=== PATIENT | male | born 1990 | race Two or more races ===

== ENCOUNTER 2023-03-31 08:30 | Emergency (ER) | payer OTHER, SELFPAY ==
[2023-03-31 08:33] VITALS: BP 107/55; PULSE 105; RESP 18; TEMP 36.6; O2SAT 94; BMI 46.1
--- NOTE | 2023-03-31 08:52 | XR_ITS ---
The [address] [address] Patient Name: ERIKA CARLOS MRN: [id number] date: 1990 Sex: M Assigned Patient Location: ER Current Patient Location: ER Accession/Order Number: [id number] Exam Date: 03/31/2023 09:23 Report Date: 03/31/2023 09:37 At the request of: CHRISTIAN HORNER Procedure: XR chest 1V EXAM: XR chest 1V HISTORY: . shortness of breath . COMPARISON: None. TECHNIQUE: Single view of the chest FINDINGS: Heart and vascularity are unremarkable. Lungs are free of focal infiltrates. Grossly no bony abnormality is appreciated. XR/XR chest 1V IMPRESSION: No acute heart or lung disease identified. Electronically authenticated by: HONEY JENSEN Date: 03/31/2023 09:37
--- NOTE | 2023-03-31 08:54 | ED.SOB1 ---
HPI - SOB/Dyspnea General Chief Complaint: Shortness of Breath/Dyspnea Time Seen by Provider: 03/31/23 08:52 Source: patient Mode of arrival: walk-in History of Present Illness HPI Narrative: patient here with increasing shortness of breath. He's been sick for several days but it got worse last night. 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 He does smoke a pack cigarettes a day. He went to an urgent care previously and he just started taking azithromycin Thursday and they also placed him on steroids. They have a nebulizer machine at home for another family member but he has not been using it. 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 He's not had bloody sputum. He's not had any congestive heart failure or cardiac problems. He has wheezes and cannot do much work at all without getting short of breath. He is not noticing swelling of his legs. He's not had sore throat or muscle aches and pains. He's had Covid previously several times Related Data Home Medications Medication Instructions Recorded Confirmed albuterol sulfate 90 mcg/actuation 1 inh inhalation Q6H PRN shortness 03/31/23 03/31/23 aerosol inhaler of breath or wheezing azithromycin 500 mg tablet 500 mg PO Q12H 03/31/23 03/31/23 prednisone 50 mg tablet 50 mg PO DAILY 03/31/23 03/31/23 Allergies Allergy/AdvReac Type Severity Reaction Status Date / Time No Known Drug Allergies Allergy Verified 03/31/23 08:33 PFS PFS Social History Smoking status: Current every day smoker Exam Narrative Exam Narrative: very pleasant gentleman does have a cough with a bronchospastic component. Does not appear acutely ill. Pulse ox is ninety-three percent on room air. He's very large gentleman. Examination his lungs shows some maxillary wheezing bilaterally with no rhonchi. There are some rales bibasilar. Heart sounds normal no S3-S4 or murmur. Legs show no evidence of peripheral edema or venous stasis. He does not have any abdominal complaints. ENT does not show any abnormalities or focus of infection. Constitutional Vital Signs, click to edit/add: Last Vital Signs Temp 97.9 F 03/31/23 08:33 Pulse 103 H 03/31/23 08:56 Resp 18 03/31/23 08:33 BP 107/55 03/31/23 08:33 Pulse Ox 93 L 03/31/23 08:56 O2 Del Method Room Air 03/31/23 08:56 Course Vital Signs Vital signs: Vital Signs Temperature 97.9 F 03/31/23 08:33 Pulse Rate 105 H 03/31/23 08:33 Respiratory Rate 18 03/31/23 08:33 Blood Pressure 107/55 03/31/23 08:33 Pulse Oximetry 94 L 03/31/23 08:33 Oxygen Delivery Method Room Air 03/31/23 08:33 Temperature 97.9 F 03/31/23 08:33 Pulse Rate 103 H 03/31/23 08:56 Respiratory Rate 18 03/31/23 08:33 Blood Pressure 107/55 03/31/23 08:33 Pulse Oximetry 93 L 03/31/23 08:56 Oxygen Delivery Method Room Air 03/31/23 08:56 MDM - SOB/Dyspnea MDM Narrative Medical decision making narrative: patient's white blood cell count is modestly elevated. He has taken some steroids. His chest x-ray did not show any acute findings and is frustrate panel was completely negative. He was given a DuoNeb and does feel better. His indicated that he does have a nebulizer treatment at home so we'll start him on that. Our review with him his steroid dose. We'll keep him on his azithromycin. Cigarette cessation was emphasized. Lab Data Labs: Lab Results 03/31/23 03/31/23 Range/Units 08:55 09:01 WBC 16.2 H (4.0-11.0) 10^3/uL RBC 5.02 (4.70-6.10) 10^6/uL Hgb 14.4 (14.0-18.0) g/dL Hct 44.6 (42.0-54.0) % MCV 88.8 (80.0-94.0) fL MCH 28.7 (25.9-34.0) pg MCHC 32.3 (29.9-35.2) g/dL RDW 13.2 (11.0-15.0) % Plt Count 296 (150-450) 10^3/uL MPV 9.7 (9.5-13.5) fL Neut % (Auto) 62.0 (43.0-75.0) % Lymph % (Auto) 31.1 (20.5-60.0) % Mcculloch % (Auto) 5.2 (1.7-12.0) % Eos % (Auto) 0.7 L (0.9-7.0) % Baso % (Auto) 0.4 (0.2-2.0) % Neut # (Auto) 10.1 H (1.4-6.5) 10^3/uL Lymph # (Auto) 5.1 H (1.2-3.8) 10^3/uL Mcculloch # (Auto) 0.8 (0.3-0.8) 10^3/uL Eos # (Auto) 0.1 (0.0-0.7) 10^3/uL Baso # (Auto) 0.1 (0.0-0.1) 10^3/uL Abs Immat Gran (auto) 0.10 H (0.00-0.03) 10^3/uL Imm/Tot Granulo (auto) 0.6 H (0.0-0.5) % Sodium 139 (136-145) mmol/L Potassium 3.6 (3.5-5.1) mmol/L Chloride 103 (98-107) mmol/L Carbon Dioxide 29.0 (21.0-32.0) mmol/L Anion Gap 10.6 BUN 12.0 (7.0-18.0) mg/dL Creatinine 0.85 (0.70-1.30) mg/dL Est GFR ( Amer) >60 (>=60) Est GFR (Non-Af Amer) >60 (>=60) BUN/Creatinine Ratio 14.1 Glucose 107 H (74-106) mg/dL Calcium 8.4 L (8.5-10.1) mg/dL NT-Pro-B Natriuret Pep 27.0 (<=450.0) pg/mL Adenovirus (PCR) Not detected (NOT DETECTE) C. pneumoniae DNA (PCR) Not detected (NOT DETECTE) Coronavirus Type OC43 Not detected (NOT DETECTE) Coronavirus Type HKU1 Not detected (NOT DETECTE) Coronavirus Type 229E Not detected (NOT DETECTE) Coronavirus Type NL63 Not detected (NOT DETECTE) Human Metapneumovir PCR Not detected (NOT DETECTE) M. pneumoniae (PCR) Not detected (NOT DETECTE) Parainfluenza PCR Not detected (NOT DETECTE) Parainfluenza 2 (PCR) Not detected (NOT DETECTE) Parainfluenza 3 (PCR) Not detected (NOT DETECTE) Parainfluenza 4 (PCR) Not detected (NOT DETECTE) RSV (RT-PCR) Not detected (NOT DETECTE) Entero/Rhino (PCR) Not detected (NOT DETECTE) SARS-CoV-2 (PCR) Not detected (NOT DETECTE) Bordetella pertussis (PCR) Not detected (NOT DETECTE) B parapertussis DNA PCR Not detected (NOT DETECTE) Influenza Type A (PCR) Not detected (NOT DETECTE) Influenza Type B (PCR) Not detected (NOT DETECTE) Discharge Plan Discharge Chief Complaint: Shortness of Breath/Dyspnea Clinical Impression: Acute dyspnea Patient Disposition: Home, Self-Care Time of Disposition Decision: 10:35 Prescriptions / Home Meds: No Action albuterol sulfate 90 mcg/actuation HFA aerosol inhaler 1 inh INHALATION Q6H PRN (Reason: shortness of breath or wheezing) azithromycin 500 mg tablet 500 mg PO Q12H prednisone 50 mg tablet 50 mg PO DAILY Additional Instructions: albuterol home nebulizers every four hours. Cigarette cessation/finish antibiotics Stand Alone Forms: Portal Instructions Referrals: Physician,Non-Staff, MD [Primary Care Provider] - 1 week
[2023-03-31 08:56] VITALS: PULSE 103; O2SAT 93
[2023-03-31 09:07] LABS: Basophils Absolute Auto 0.1 10^3/uL (0.0-0.1); Basophils Percent Auto 0.4 % (0.2-2.0); Eosinophils Absolute Auto 0.1 10^3/uL (0.0-0.7); Eosinophils Percent Auto 0.7 % (0.9-7.0); Hematocrit 44.6 % (42.0-54.0); Hemoglobin 14.4 g/dL (14.0-18.0); Immature Granulocytes Pct Auto 0.6 % (0.0-0.5); Lymphocytes Absolute Auto 5.1 10^3/uL (1.2-3.8); Lymphocytes Percent Auto 31.1 % (20.5-60.0); Mean Corpuscular HGB Conc 32.3 g/dL (29.9-35.2); Mean Corpuscular Hemoglobin 28.7 pg (25.9-34.0); Mean Corpuscular Volume 88.8 fL (80.0-94.0); Mean Platelet Volume 9.7 fL (9.5-13.5); Monocytes Absolute Auto 0.8 10^3/uL (0.3-0.8); Monocytes Percent Auto 5.2 % (1.7-12.0); Neutrophils Absolute Auto 10.1 10^3/uL (1.4-6.5); Platelet Count 296 10^3/uL (150-450); Red Blood Count 5.02 10^6/uL (4.70-6.10); Red Cell Distribution Width 13.2 % (11.0-15.0); White Blood Count 16.2 10^3/uL (4.0-11.0)
[2023-03-31 09:14] LABS: Adenovirus NOT DETECTED (NOT DETECTE); Bordetella parapertussis NOT DETECTED (NOT DETECTE); Coronavirus 229E NOT DETECTED (NOT DETECTE); Coronavirus HKU1 NOT DETECTED (NOT DETECTE); Coronavirus NL63 NOT DETECTED (NOT DETECTE); Coronavirus OC43 NOT DETECTED (NOT DETECTE); Human Metapneumovirus NOT DETECTED (NOT DETECTE); Human Rhinovirus/Enterovirus NOT DETECTED (NOT DETECTE); Influenza A NOT DETECTED (NOT DETECTE); Influenza B NOT DETECTED (NOT DETECTE); Mycoplasma pneumoniae NOT DETECTED (NOT DETECTE); Parainfluenza Virus 1 NOT DETECTED (NOT DETECTE); Parainfluenza Virus 2 NOT DETECTED (NOT DETECTE); Parainfluenza Virus 3 NOT DETECTED (NOT DETECTE); Parainfluenza Virus 4 NOT DETECTED (NOT DETECTE); Respiratory Syncytial Virus NOT DETECTED (NOT DETECTE); SARS-CoV-2 NOT DETECTED (NOT DETECTE)
[2023-03-31] MEDS: METHYLPREDNISOLONE SOD SUCC PF 125 MG/2 ML VIAL IVP (09:21)
[2023-03-31] MEDS: IPRATROPIUM/ALBUTEROL SULFATE 3 ML AMPUL.NEB IH (09:30)
[2023-03-31 09:32] LABS: Anion Gap 10.6; BUN Creatinine Ratio 14.1; Calcium 8.4 mg/dL (8.5-10.1); Chloride 103 mmol/L (98-107); Estimated GFR (African America >60 (>=60); Estimated GFR (Non-African Ame >60 (>=60); Glucose 107 mg/dL (74-106); Potassium 3.6 mmol/L (3.5-5.1); Sodium 139 mmol/L (136-145)
== END 2023-03-31 10:51 | disposition home or self-care (01) ==
PROVIDERS: Emergency Provider Emergency Medicine Emergency Medical Services
DX: R06.00 Dyspnea, unspecified (principal); Z79.899 Other long term (current) drug therapy; Z86.16 Personal history of COVID-19; F17.210 Nicotine dependence, cigarettes, uncomplicated; Z20.822 Contact with and (suspected) exposure to COVID-19
CPT/HCPCS: 0202U; 36415; 71045; 80048; 83880; 85025; 94640; 99284; J2930

== ENCOUNTER 2023-12-03 14:00 | Emergency (ER) | payer OTHER, SELFPAY ==
[2023-12-03 14:02] VITALS: BP 135/96; PULSE 93; TEMP 36.9; O2SAT 95; BMI 51.7
--- NOTE | 2023-12-03 14:19 | ED_ITS ---
HPI HPI - General Adult General Chief complaint: Headache Stated complaint: HEADACHE/NAUSEA/VOMITING Time Seen by Provider: 12/03/23 14:09 Mode of arrival: walk-in Limitations: no limitations History of Present Illness HPI narrative: And is a 32-year-old male who presents to the emergency department for 3-day history of frontal headache associated with nausea and vomiting. Patient denies any trauma to the head. He states he has had a gradually worsening headache over the bilateral temples. He denies visual changes. He denies objective fevers. He has not had any significant congestion and does not believe that his sinuses feel any pressure. No cough. He has developed nausea and vomiting over the last several days. No diarrhea or urinary symptoms. He has no history of migraines. No medications prior to arrival today. He denies abdominal pain, chest pain, back pain Related Data Previous Rx's ?Medication ?Instructions ?Recorded crzrukuugy-woehiomcxyvzw-pdbnhune 1 cap PO Q6H PRN headache #12 caps 12/03/23 50 mg-300 mg-40 mg capsule (Fioricet) dexamethasone 4 mg tablet 4 mg PO BID 5 days #10 tabs 12/03/23 ketorolac 10 mg tablet 10 mg PO TID PRN pain #10 tabs 12/03/23 ondansetron 4 mg disintegrating 4 mg PO Q6H PRN nausea and 12/03/23 tablet vomiting #12 tabs Allergies Allergy/AdvReac Type Severity Reaction Status Date / Time No Known Drug Allergies Allergy Verified 12/03/23 14:02 Opioid HPI Opioid Management Most Recent Opioid Data: Last Pain Scale 10 12/03/23 14:45 Last MAR Pain Assessment 12/03/23 14:44 Review of Systems ROS Constitutional Denies: fever or chills Ears, nose, mouth, and throat Denies: throat pain or nasal congestion Cardiovascular Denies: chest pain Respiratory Denies: shortness of breath or cough Gastrointestinal Reports: nausea and vomiting; Denies: abdominal pain or diarrhea Musculoskeletal Denies: back pain or neck pain Integumentary/Breast Denies: rash Neurological Reports: headache; Denies: numbness in extremities or weakness in extremities Hematologic/Lymphatic Denies: easy bruising or easy bleeding PFSH PFSH Social History Smoking status: Current every day smoker Exam Narrative Exam Narrative: Gen.: Awake, alert, in no distress Head: Normocephalic, atraumatic ENT: Moist mucous membranes, No photophobia, no nuchal rigidity Respiratory: No respiratory distress, lungs clear bilaterally Cardio: Regular rate and rhythm Extremities: Moves extremities equally Psych: Normal mood and affect Neuro: No focal neuro deficit Skin: Warm, dry, intact Constitutional Vital Signs, click to edit/add: Last Vital Signs Temp 98.4 F 12/03/23 14:02 Pulse 93 H 12/03/23 14:02 Resp 20 12/03/23 14:02 BP 135/96 H 12/03/23 14:02 Pulse Ox 95 12/03/23 14:02 O2 Del Method Room Air 12/03/23 14:02 Course Vital Signs Vital signs: Vital Signs Temperature 98.4 F 12/03/23 14:02 Pulse Rate 93 H 12/03/23 14:02 Respiratory Rate 20 12/03/23 14:02 Blood Pressure 135/96 H 12/03/23 14:02 Pulse Oximetry 95 12/03/23 14:02 Oxygen Delivery Method Room Air 12/03/23 14:02 Temperature 98.4 F 12/03/23 14:02 Pulse Rate 93 H 12/03/23 14:02 Respiratory Rate 20 12/03/23 14:02 Blood Pressure 135/96 H 12/03/23 14:02 Pulse Oximetry 95 12/03/23 14:02 Oxygen Delivery Method Room Air 12/03/23 14:02 Medical Decision Making MDM Narrative Medical decision making narrative: CT of the brain is unremarkable, lab studies show mildly elevated CRP and sed rates. COVID test is negative. Patient with stable vital signs on reevaluation. He is resting comfortably. He was given IV fluids, Reglan, Benadryl, Toradol with improvement. He will be discharged home on Fioricet, Toradol, Zofran. Decadron given for home as well. Follow-up with PCP and return to the ER if symptoms change or worsen SUPERVISED APC VISIT, PHYSICIAN ATTESTATION: Based on the medical record the care appears appropriate. ? Medical Records Medical records reviewed: Yes I reviewed the patient's medical records Lab Data Lab results reviewed: Yes I reviewed the patient's lab results Labs: Lab Results 12/03/23 12/03/23 Range/Units 14:31 15:22 WBC 9.4 (4.0-11.0) 10^3/uL RBC 5.09 (4.70-6.10) 10^6/uL Hgb 14.7 (14.0-18.0) g/dL Hct 44.3 (42.0-54.0) % MCV 87.0 (80.0-94.0) fL MCH 28.9 (25.9-34.0) pg MCHC 33.2 (29.9-35.2) g/dL RDW 12.8 (11.0-15.0) % Plt Count 235 (150-450) 10^3/uL MPV 10.0 (9.5-13.5) fL Neut % (Auto) 79.3 H (43.0-75.0) % Lymph % (Auto) 13.4 L (20.5-60.0) % Porter % (Auto) 6.9 (1.7-12.0) % Eos % (Auto) 0.0 L (0.9-7.0) % Baso % (Auto) 0.2 (0.2-2.0) % Neut # (Auto) 7.5 H (1.4-6.5) 10^3/uL Lymph # (Auto) 1.3 (1.2-3.8) 10^3/uL Porter # (Auto) 0.7 (0.3-0.8) 10^3/uL Eos # (Auto) 0.0 (0.0-0.7) 10^3/uL Baso # (Auto) 0.0 (0.0-0.1) 10^3/uL Abs Immat Gran (auto) 0.02 (0.00-0.03) 10^3/uL Imm/Tot Granulo (auto) 0.2 (0.0-0.5) % ESR 70 H (<=15) mm/hr Sodium 136 (136-145) mmol/L Potassium 3.8 (3.5-5.1) mmol/L Chloride 102 (98-107) mmol/L Carbon Dioxide 28.9 (21.0-32.0) mmol/L Anion Gap 8.9 BUN 11.0 (7.0-18.0) mg/dL Creatinine 0.96 (0.70-1.30) mg/dL Est GFR ( Amer) >60 (>=60) Est GFR (Non-Af Amer) >60 (>=60) BUN/Creatinine Ratio 11.5 Glucose 139 H (74-106) mg/dL Calcium 8.8 (8.5-10.1) mg/dL Total Bilirubin 0.5 (0.2-1.0) mg/dL AST 36 (15-37) U/L ALT 73 H (16-63) U/L Alkaline Phosphatase 81 (46-116) U/L C-Reactive Protein 2.76 H (<=0.50) mg/dL Total Protein 8.2 (6.4-8.2) g/dL Albumin 3.3 L (3.4-5.0) g/dL Globulin 4.9 g/dL Albumin/Globulin Ratio 0.7 SARS-CoV-2 Ag (CV2AG) Negative (NEGATIVE) Imaging Data CT scan - head: Attestation: I have reviewed the pertinent imaging results. Radiologist's impression: ITS Impressions Head CT 12/03/23 14:59 IMPRESSION: There is no evidence of an intracranial hemorrhage, mass lesion or apparent acute infarct. The visualized sinuses are clear. There is no apparent acute skull fracture. Electronically authenticated by: MARCIANO CLEMENTS Date: 12/03/2023 15:11 Discharge Plan Discharge Stand Alone Forms: Portal Instructions Chief Complaint: Headache Clinical Impression: Headache, Vomiting Patient Disposition: Home, Self-Care Time of Disposition Decision: 15:46 Condition: Good Prescriptions / Home Meds: New ketorolac 10 mg tablet 10 mg PO TID PRN (Reason: pain) Qty: 10 0RF dexamethasone 4 mg tablet 4 mg PO BID 5 Days Qty: 10 0RF ondansetron 4 mg tablet,disintegrating 4 mg PO Q6H PRN (Reason: nausea and vomiting) Qty: 12 0RF thdydwooug-feiyndrpkmsxo-cgcq [Fioricet] 50-300-40 mg capsule 1 cap PO Q6H PRN (Reason: headache) Qty: 12 0RF Rx Instructions: DX: R51.9 Print Language: Taiwanese Instructions: Acute Headache (ED) Referrals: Physician,Non-Staff, MD [Primary Care Provider] - 1 week
[2023-12-03] MEDS: KETOROLAC TROMETHAMINE 30 MG/ML VIAL IVP (14:44)
[2023-12-03] MEDS: DIPHENHYDRAMINE HCL 50 MG/ML VIAL 25 MG IV (14:44)
[2023-12-03] MEDS: METOCLOPRAMIDE HCL 10 MG/2 ML VIAL IVP (14:44)
[2023-12-03] MEDS: 0.9 % SODIUM CHLORIDE 1,000 ML 999 ML IV (14:45)
[2023-12-03 14:46] LABS: Basophils Percent Auto 0.2 % (0.2-2.0); Hematocrit 44.3 % (42.0-54.0); Hemoglobin 14.7 g/dL (14.0-18.0); Immature Granulocytes Abs Auto 0.02 10^3/uL (0.00-0.03); Immature Granulocytes Pct Auto 0.2 % (0.0-0.5); Lymphocytes Absolute Auto 1.3 10^3/uL (1.2-3.8); Lymphocytes Percent Auto 13.4 % (20.5-60.0); Mean Corpuscular HGB Conc 33.2 g/dL (29.9-35.2); Mean Corpuscular Hemoglobin 28.9 pg (25.9-34.0); Monocytes Absolute Auto 0.7 10^3/uL (0.3-0.8); Monocytes Percent Auto 6.9 % (1.7-12.0); Neutrophils Absolute Auto 7.5 10^3/uL (1.4-6.5); Neutrophils Percent Auto 79.3 % (43.0-75.0); Platelet Count 235 10^3/uL (150-450); Red Blood Count 5.09 10^6/uL (4.70-6.10); Red Cell Distribution Width 12.8 % (11.0-15.0); White Blood Count 9.4 10^3/uL (4.0-11.0)
--- NOTE | 2023-12-03 14:59 | CT_ITS ---
The [address] [address] Patient Name: ERIKA CARLOS MRN: [id number] date: 1990 Sex: M Assigned Patient Location: ER Current Patient Location: ER Accession/Order Number: [id number] Exam Date: 12/03/2023 14:55 Report Date: 12/03/2023 15:11 At the request of: JOHNNY NAVARRETE Procedure: CT head/brain wo con EXAM: CT head/brain wo con HISTORY: Headache frontally with dizziness for the past 4 days. COMPARISON: None. TECHNIQUE: Multiple thin computed tomograms of the head were obtained, with sagittal and coronal reconstructions. Radiation reduction technique and algorithms were utilized during the study. FINDINGS: The ventricles are not enlarged, the lateral ventricles are symmetric and the third ventricles in the midline. The sylvian fissures and cortical sulci are unremarkable. There is no evidence of an intracranial hemorrhage, mass lesion or apparent acute infarct. No focal abnormality is identified in the deep white matter. The cerebellum and visualized brainstem are intact. The visualized paranasal sinuses are clear. The middle ears are aerated. The mastoid sinuses are clear. There is no apparent acute skull fracture. CT/CT head/brain wo con IMPRESSION: There is no evidence of an intracranial hemorrhage, mass lesion or apparent acute infarct. The visualized sinuses are clear. There is no apparent acute skull fracture. Electronically authenticated by: MARCIANO CLEMENTS Date: 12/03/2023 15:11
[2023-12-03 15:06] LABS: C Reactive Protein 2.76 mg/dL (<=0.50)
[2023-12-03 15:09] LABS: Alanine Aminotransferase 73 U/L (16-63); Albumin Globulin Ratio 0.7; Albumin Level 3.3 g/dL (3.4-5.0); Alkaline Phosphatase 81 U/L (46-116); Anion Gap 8.9; Aspartate Amino Transferase 36 U/L (15-37); BUN Creatinine Ratio 11.5; Bilirubin Total 0.5 mg/dL (0.2-1.0); Calcium 8.8 mg/dL (8.5-10.1); Carbon Dioxide 28.9 mmol/L (21.0-32.0); Chloride 102 mmol/L (98-107); Estimated GFR (African America >60 (>=60); Estimated GFR (Non-African Ame >60 (>=60); Globulin 4.9 g/dL; Glucose 139 mg/dL (74-106); Potassium 3.8 mmol/L (3.5-5.1); Sodium 136 mmol/L (136-145); Total Protein 8.2 g/dL (6.4-8.2)
[2023-12-03 15:11] LABS: Erythrocyte Sedimentation Rate 70 mm/hr (<=15)
[2023-12-03 15:39] LABS: Internal Control Within Normal Limits; SARS-CoV-2 Ag NEGATIVE (NEGATIVE)
[2023-12-03 16:07] VITALS: BP 109/70; PULSE 70; O2SAT 96
== END 2023-12-03 16:09 | disposition home or self-care (01) ==
PROVIDERS: Physician Assistant; Emergency Provider Student in an Organized Health Care Education/Training Program
DX: R51.9 Headache, unspecified (principal); R11.10 Vomiting, unspecified; F17.200 Nicotine dependence, unspecified, uncomplicated; Z20.822 Contact with and (suspected) exposure to COVID-19
CPT/HCPCS: 36415; 70450; 80053; 85025; 85652; 86140; 87811; 96361; 96374; 96375; 99285; J1200; J1885; J2765